=== PATIENT | female | born 2000 | race Caucasian/White ===

== ENCOUNTER 2022-05-05 13:56 | Emergency (ER) | payer MEDICAID ==
[~2022-05-05] VITALS: Ht 160 cm; Wt 77.0 kg
[2022-05-05] MEDS ORDERED: MOXI400T31 PO (15:02)
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
[2022-05-05 15:30] VITALS: BP 160/74
== END 2022-05-05 15:30 | disposition home or self-care (01) ==
LOC: EDUNIT# 13:56 → ER 14:01
DX: S71.151A Open bite, right thigh, initial encounter (principal); F17.290 Nicotine dependence, other tobacco product, uncomplicated; Z88.0 Allergy status to penicillin; Z28.310 Unvaccinated for COVID-19; Y04.1XXA Assault by human bite, initial encounter
CPT/HCPCS: 99281

== ENCOUNTER 2022-05-12 09:59 | Observation (INO) | payer MEDICAID ==
[~2022-05-12 09:59] MED LIST: MOXI400T31 PO
[2022-05-12] MEDS ORDERED: NS IV 1000 ML 1,000 ML IV STA (10:03)
--- NOTE | 2022-05-12 10:03 | ED General ---
General Stated Complaint: SEIZURES History of Present Illness Date Seen by Provider: May 12, 2022 Time Seen by Provider: 10:03 Initial Comments 21-year-old female presents with concerns for seizure. Patient has no seizure history. She had 2 witnessed episodes of seizure-like activity lasting for couple minutes each. EMS reports when they were called she appeared to be postictal. She had no tongue biting or loss of bowel or bladder function. She does have a history of marijuana use and concerns for other substance abuse. No reports of recent fever or chills. She has vomiting. Patient was at [facility] when she just got "warm feeling" just prior to her seizure-like activity. Allergies and Home Medications Allergies Coded Allergies: Penicillins (Verified Allergy, Intermediate, hives, 05/05/22) amoxicillin (Verified Allergy, Intermediate, hives, 05/05/22) Patient Home Medication List Home Medication List Reviewed: Yes Moxifloxacin HCl (Moxifloxacin HCl) 400 Mg Tablet, 400 MG PO DAILY Prescribed by: Kita Jackson on 05/05/22 1502 Review of Systems Review of Systems Constitutional: see HPI; No chills, No fever EENTM: no symptoms reported Respiratory: no symptoms reported Cardiovascular: no symptoms reported Gastrointestinal: No abdominal pain; vomiting Musculoskeletal: no symptoms reported Skin: no symptoms reported Psychiatric/Neurological: No Symptoms Reported Physical Exam Vital Signs Vital Signs - First Documented 05/12/22 10:00 Pulse 122 Resp 16 B/P (MAP) 114/73 (87) Pulse Ox 97 Capillary Refill : Height, Weight, BMI Height: 5'5.00" Weight: 190lbs. oz. 86.086783ex; 30.00 BMI Method:Estimated General Appearance: Other (vomiting, post ictal ) Neck: Full Range of Motion, Normal Inspection Respiratory: Lungs Clear, Normal Breath Sounds Cardiovascular: Regular Rate, Rhythm, No Edema Gastrointestinal: Soft; No Distended, No Guarding Extremity: Normal Capillary Refill Neurologic/Psychiatric: sea foam kiss maker II-XII Norm as Tested, Other (pt mild post ictal but will respond appropriately to questions. ) Skin: Normal Color, Warm/Dry Focused Exam Lactate Level 05/12/22 10:14: Lactic Acid Level 4.63*H 05/12/22 12:20: Lactic Acid Level 0.81 Lactic Acid Level Laboratory Tests Test 05/12/22 10:14 05/12/22 12:20 Lactic Acid Level 4.63 MMOL/L (0.50-2.00) *H 0.81 MMOL/L (0.50-2.00) Progress/Results/Core Measures Suspected Sepsis SIRS Temperature: Pulse: Respiratory Rate: Laboratory Tests 05/12/22 10:05: White Blood Count 12.3H Blood Pressure / Mean: 05/12/22 10:14: Lactic Acid Level 4.63*H 05/12/22 12:20: Lactic Acid Level 0.81 Laboratory Tests 05/12/22 10:05: Creatinine 0.83, Platelet Count 246, Total Bilirubin 0.5 Results/Orders Lab Results Laboratory Tests Test 05/12/22 10:05 05/12/22 10:14 05/12/22 10:43 05/12/22 12:20 Range/Units White Blood Count 12.3 H 4.3-11.0 10^3/uL Red Blood Count 4.42 3.80-5.11 10^6/uL Hemoglobin 13.2 11.5-16.0 g/dL Hematocrit 39 35-52 % Mean Corpuscular Volume 87 80-99 fL Mean Corpuscular Hemoglobin 30 25-34 pg Mean Corpuscular Hemoglobin Concent 34 32-36 g/dL Red Cell Distribution Width 12.7 10.0-14.5 % Platelet Count 246 130-400 10^3/uL Mean Platelet Volume 10.3 9.0-12.2 fL Immature Granulocyte % (Auto) 0 % Neutrophils (%) (Auto) 79 H 42-75 % Lymphocytes (%) (Auto) 15 12-44 % Monocytes (%) (Auto) 5 0-12 % Eosinophils (%) (Auto) 0 0-10 % Basophils (%) (Auto) 1 0-10 % Neutrophils # (Auto) 9.7 H 1.8-7.8 10^3/uL Lymphocytes # (Auto) 1.9 1.0-4.0 10^3/uL Monocytes # (Auto) 0.6 0.0-1.0 10^3/uL Eosinophils # (Auto) 0.0 0.0-0.3 10^3/uL Basophils # (Auto) 0.1 0.0-0.1 10^3/uL Immature Granulocyte # (Auto) 0.1 0.0-0.1 10^3/uL Sodium Level 139 135-145 MMOL/L Potassium Level 3.7 3.6-5.0 MMOL/L Chloride Level 107 98-107 MMOL/L Carbon Dioxide Level 18 L 21-32 MMOL/L Anion Gap 14 5-14 MMOL/L Blood Urea Nitrogen 10 7-18 MG/DL Creatinine 0.83 0.60-1.30 MG/DL Estimat Glomerular Filtration Rate 104 BUN/Creatinine Ratio 12 Glucose Level 139 H 70-105 MG/DL Calcium Level 9.1 8.5-10.1 MG/DL Corrected Calcium 8.9 8.5-10.1 MG/DL Magnesium Level 2.0 1.6-2.4 MG/DL Total Bilirubin 0.5 0.1-1.0 MG/DL Aspartate Amino Transf (AST/SGOT) 16 5-34 U/L Alanine Aminotransferase (ALT/SGPT) 17 0-55 U/L Alkaline Phosphatase 72 40-136 U/L Total Protein 7.2 6.4-8.2 GM/DL Albumin 4.3 3.2-4.5 GM/DL Lipase 27 8-78 U/L Serum Test, Qualitative NEGATIVE NEGATIVE Serum Alcohol < 10 <10 MG/DL Lactic Acid Level 4.63 *H 0.81 0.50-2.00 MMOL/L Urine Color YELLOW Urine Clarity CLEAR Urine pH 6.0 5-9 Urine Specific Andrew >=1.030 1.016-1.022 Urine Protein NEGATIVE NEGATIVE Urine Glucose (UA) NEGATIVE NEGATIVE Urine Ketones NEGATIVE NEGATIVE Urine Nitrite NEGATIVE NEGATIVE Urine Bilirubin NEGATIVE NEGATIVE Urine Urobilinogen 0.2 < = 1.0 MG/DL Urine Leukocyte Esterase NEGATIVE NEGATIVE Urine RBC (Auto) NEGATIVE NEGATIVE Urine RBC NONE /HPF Urine WBC NONE /HPF Urine Squamous Epithelial Cells NONE /HPF Urine Crystals PRESENT H /LPF Urine Amorphous Sediment FEW [place]ADEEM URATES H /LPF Urine Bacteria NEGATIVE /HPF Urine Casts NONE /LPF Urine Mucus MODERATE H /LPF Urine Culture Indicated NO Urine Opiates Screen NEGATIVE NEGATIVE Urine Oxycodone Screen NEGATIVE NEGATIVE Urine Methadone Screen NEGATIVE NEGATIVE Urine Propoxyphene Screen NEGATIVE NEGATIVE Urine Barbiturates Screen NEGATIVE NEGATIVE Ur Tricyclic Antidepressants Screen NEGATIVE NEGATIVE Urine Phencyclidine Screen NEGATIVE NEGATIVE Urine Amphetamines Screen POSITIVE H NEGATIVE Urine Methamphetamines Screen POSITIVE H NEGATIVE Urine Benzodiazepines Screen NEGATIVE NEGATIVE Urine Cocaine Screen NEGATIVE NEGATIVE Urine Cannabinoids Screen POSITIVE H NEGATIVE My Orders Orders - MORELOS,LINDA L DO Alcohol (05/12/22 10:03) Cbc With Automated Diff (05/12/22 10:03) Comprehensive Metabolic Panel (05/12/22 10:03) Drug Screen Stat (Urine) (05/12/22 10:03) Lactic Acid Analyzer (05/12/22 10:03) Lipase (05/12/22 10:03) Magnesium (05/12/22 10:03) Ua Culture If Indicated (05/12/22 10:03) Ondansetron Injection (Zofran Injectio (05/12/22 10:15) Ns Iv 1000 Ml (Sodium Chloride 0.9%) (05/12/22 10:03) Ct Head Wo (05/12/22 10:03) Naloxone Injection (Narcan Injection) (05/12/22 10:16) Hcg,Qualitative Serum (05/12/22 10:20) Naloxone Injection (Narcan Injection) (05/12/22 10:37) Ns (Ivpb) (Sodium C... W/Naloxone Injec (05/12/22 10:45) Ondansetron Injection (Zofran Injectio (05/12/22 11:45) Ondansetron Injection (Zofran Injectio (05/12/22 12:00) Ondansetron Injection (Zofran Injectio (05/12/22 11:46) Ed Admission (Communication) (05/12/22 12:50) Levetiracetam 1000 Mg/Ns 100ml (Keppra I (05/12/22 13:15) Levetiracetam Injection (Keppra Injectio (05/12/22 13:15) Medications Given in ED Current Medications Medications Dose Ordered Sig/Francisco Route Start Time Stop Time Status Last Admin Dose Admin Naloxone HCl 2 mg STK-MED ONCE .ROUTE 05/12/22 10:16 05/12/22 10:19 DC 05/12/22 10:23 2 MG Naloxone HCl 2 mg STK-MED ONCE .ROUTE 05/12/22 10:37 05/12/22 10:40 DC 05/12/22 10:38 2 MG Naloxone HCl 0.4 mg/Sodium Chloride 100 ml @ 4.813 mls/ hr [id number] ONCE IV 05/12/22 10:45 05/13/22 07:31 05/12/22 10:55 4.813 MLS/HR Ondansetron HCl 4 mg ONCE ONCE IVP 05/12/22 10:15 05/12/22 10:16 DC 05/12/22 10:20 4 MG Ondansetron HCl 4 mg ONCE ONCE IVP 05/12/22 11:45 05/12/22 11:46 DC 05/12/22 11:48 4 MG Vital Signs/I&O 05/12/22 10:00 Pulse 122 Resp 16 B/P (MAP) 114/73 (87) Pulse Ox 97 Capillary Refill : Progress Note : Progress Note Patient's diagnostic studies were ordered reviewed and interpreted by me. Patient did have elevation in lactic make acid this could be due to questionable seizure-like activity. Patient's drug screen was positive for methamphetamines and marijuana. Patient CT was ordered and reviewed with initial interpretation by me is negative with final interpretation per radiology report. Patient history was obtained from EMS, mom, other family members along with her. There is concerned that maybe her meth or marijuana was laced. She did have episode when she initially came in and when she was very decreased breathing rate in the 60s when she would fall asleep of her oxygen dropping. She was given 2 doses of 2 mg of Narcan which she did show improvement so she was started on a Narcan drip. Upon the Narcan drip, her respirations improved to where she was able to maintain her respirations at a normal rate with normal oxygenation. We were able to wean this after approximately an hour. Patient will be admitted for observation to the ICU due to this new seizure-like activity is likely related to her methamphetamine and drug use. Patient did receive 1500 mg Keppra loading dose. I discussed case with Dr. Stevens who came to the ER and we reviewed together. Patient was stable upon transfer to the floor. I did have approximately 60 minutes of critical care time with patient. ECG Initial ECG Impression Date: May 12, 2022 Initial ECG Impression Time: 10:26 Initial ECG Rate: 84 Initial ECG Rhythm: Normal Sinus Initial ECG Intervals: PA (142) Initial ECG Impression: Normal Comment nsr, no acute st changes or elevation Diagnostic Imaging Diagonstic Imaging: CT Comments Date of Exam:05/12/22 CT HEAD WO PROCEDURE: CT head without contrast. TECHNIQUE: Multiple contiguous axial images were obtained through the brain without the use of intravenous contrast. Auto Exposure Controls were utilized during the CT exam to meet ALARA standards for radiation dose reduction. INDICATION: Seizures. No prior studies are available for comparison. Ventricles and sulci are within normal limits. No sulcal effacement or midline shift is identified. No acute intra-axial or extra-axial hemorrhage is detected. Cisterns are patent. Visualized paranasal sinuses demonstrate mucosal thickening bilateral maxillary sinuses as well as ethmoid air cells. IMPRESSION: No acute intracranial process is detected. Reviewed: Reviewed by Me, Reviewed/Discussed Departure Impression Primary Impression: Methamphetamine poisoning of undetermined intent Qualified Codes: T43.654A - Poisoning by methamphetamines, undetermined, initial encounter Additional Impression: Seizure-like activity Disposition: ADMITTED INPATIENT Condition: Stable Admissions Decision to Admit Reason: Admit from ER (General) Decision to Admit/Date: May 12, 2022 Time/Decision to Admit Time: 12:00 Departure-Patient Inst. Referrals: [facility] (PCP/Family) Primary Care Physician LINDA MORELOS DO May 12, 2022 10:03
[2022-05-12 10:14] LABS: BASOPHILS # (AUTO) 0.1 10^3/uL (0.0-0.1); BASOPHILS % (AUTO) 1 % (0-10); EOSINOPHILS % (AUTO) 0 % (0-10); HEMATOCRIT 39 % (35-52); HEMOGLOBIN 13.2 g/dL (11.5-16.0); LYMPHOCYTES # (AUTO) 1.9 10^3/uL (1.0-4.0); LYMPHOCYTES % (AUTO) 15 % (12-44); MEAN CORPUSCULAR HEMOGLOBIN 30 pg (25-34); MEAN CORPUSCULAR HGB CONC 34 g/dL (32-36); MEAN CORPUSCULAR VOLUME 87 fL (80-99); MEAN PLATELET VOLUME 10.3 fL (9.0-12.2); MONOCYTES # (AUTO) 0.6 10^3/uL (0.0-1.0); MONOCYTES % (AUTO) 5 % (0-12); NEUTROPHILS # (AUTO) 9.7 10^3/uL (1.8-7.8); NEUTROPHILS % (AUTO) 79 % (42-75); PLATELET COUNT 246 10^3/uL (130-400); WHITE BLOOD COUNT 12.3 10^3/uL (4.3-11.0)
[2022-05-12] MEDS ORDERED: ONDANSETRON 4 MG/2 ML (SDV) Z0FRAN IVP ONE ×2 (10:15→11:45)
[2022-05-12] MEDS ORDERED: NALOXONE 2 MG/2 ML (NARCAN) SYR ONE (10:16)
[2022-05-12 10:26] LABS: ALBUMIN 4.3 GM/DL (3.2-4.5); CHLORIDE 107 MMOL/L (98-107); POTASSIUM 3.7 MMOL/L (3.6-5.0); SODIUM 139 MMOL/L (135-145)
[2022-05-12 10:27] LABS: CALCIUM 9.1 MG/DL (8.5-10.1)
[2022-05-12 10:28] LABS: GLUCOSE 139 MG/DL (70-105)
[2022-05-12] MEDS: NALOXONE 2 MG/2 ML (NARCAN) SYR ONE ×2 (10:28→10:38)
[2022-05-12 10:29] LABS: CARBON DIOXIDE 18 MMOL/L (21-32); TOTAL PROTEIN 7.2 GM/DL (6.4-8.2)
[2022-05-12 10:30] LABS: BILIRUBIN,TOTAL 0.5 MG/DL (0.1-1.0)
[2022-05-12 10:32] LABS: ALKALINE PHOSPHATASE 72 U/L (40-136); CREATININE SERUM 0.83 MG/DL (0.60-1.30); GFR ESTIMATED 104
[2022-05-12 10:33] LABS: BUN/CREATININE RATIO 12
[2022-05-12 10:35] LABS: ALANINE AMINOTRANSFERASE 17 U/L (0-55)
[2022-05-12 10:36] LABS: LIPASE 27 U/L (8-78)
[2022-05-12] MEDS ORDERED: NALOXONE INJECTION 0.4 MG in NS (IVPB) 99 ML IV ONE (10:45)
[2022-05-12 11:16] LABS: BILIRUBIN,URINE NEGATIVE (NEGATIVE); CLARITY,URINE CLEAR; COLOR,URINE YELLOW; GLUCOSE, URINE (UA) NEGATIVE (NEGATIVE); KETONES,URINE NEGATIVE (NEGATIVE); LEUKOCYTE ESTERASE ,URINE NEGATIVE (NEGATIVE); NITRITE,URINE NEGATIVE (NEGATIVE); PROTEIN,URINE NEGATIVE (NEGATIVE)
[2022-05-12 11:32] LABS: AMPHETAMINE SCREEN, URINE POSITIVE (NEGATIVE); BARBITURATE SCREEN URINE NEGATIVE (NEGATIVE); BENZODIAZEPINES SCREEN URINE NEGATIVE (NEGATIVE); CANNABINOID SCREEN, URINE POSITIVE (NEGATIVE); COCAINE SCREEN URINE NEGATIVE (NEGATIVE); METHADONE STAT NEGATIVE (NEGATIVE); OPIATE SCREEN URINE NEGATIVE (NEGATIVE); OXYCODONE STAT NEGATIVE (NEGATIVE); PROPOXYPHENE STAT NEGATIVE (NEGATIVE); TRICYCLIC ANTIDEPRESSANTS SCRE NEGATIVE (NEGATIVE)
[2022-05-12] MEDS ORDERED: ONDANSETRON 4 MG/2 ML (SDV) Z0FRAN ONE (11:46)
[2022-05-12 11:49] LABS: AMORPHOUS SEDIMENT,UR FEW AMOR URATES /LPF; BACTERIA,URINE NEGATIVE /HPF
--- NOTE | 2022-05-12 11:49 | Diagnostic Imaging Report ---
PROCEDURE: CT head without contrast. TECHNIQUE: Multiple contiguous axial images were obtained through the brain without the use of intravenous contrast. Auto Exposure Controls were utilized during the CT exam to meet ALARA standards for radiation dose reduction. INDICATION: Seizures. No prior studies are available for comparison. Ventricles and sulci are within normal limits. No sulcal effacement or midline shift is identified. No acute intra-axial or extra-axial hemorrhage is detected. Cisterns are patent. Visualized paranasal sinuses demonstrate mucosal thickening bilateral maxillary sinuses as well as ethmoid air cells. IMPRESSION: No acute intracranial process is detected. Dictated by: Dictated on workstation # [id number]
[2022-05-12] MEDS ORDERED: ONDANSETRON 4 MG/2 ML (SDV) Z0FRAN IVP PRN (12:00)
[2022-05-12] MEDS ORDERED: levETIRAcetam 1000 mg/NS 100ml 100 ML IV ONE (13:15)
--- NOTE | 2022-05-12 14:26 | Tele-ICU Progress Note ---
Subjective Date Seen by a Provider: May 12, 2022 Subjective/Events-last exam This virtual visit was conducted using real time audio/video. Thank you for asking us to see this patient for critical care needs due to new onset seizures, resp fail in ER requiring Narcan drip, and urine tox screen + for amphetamines and cannabinoids. PMH: substance abuse. PE: Pale, alert. VSS. O2 sat 97% on 3 LPM. HEENT: No obvious masses, adenopathy or JVD. Chest: clear to auscultation. CV: RRR S1 S2 No murmur or added sounds. Abd: Non-tender. Bowel sounds Y. : Unremarkable. Neil Y. BODY DESIGN CHECKER/psychiatric: Grossly intact. No obvious focal findings. Extremities: No edema. Capillary refill < 3 seconds. Skin: unremarkable. Results: Elevated WCC 12.3. Available chart/ vitals / labs / images reviewed. Video assessment done using teleICU camera, rest of exam as per RN. A/P: Respiratory insufficiency resolved : Continue present management with PRN Narcan Monitor for increasing oxygenation needs and/or need for intubation. Critical Care: critically ill patient. Cont. IVF, Keppra Discussed with RN Fanta. Asked RN to reach out to eICU if any questions or concerns later. Time spent with patient/coordination of care with other health professionals (mins): 15. Sepsis Event Evaluation Height, Weight, BMI Height: 5'5.00" Weight: 190lbs. oz. 86.518829cw; 28.00 BMI Method:Estimated Focused Exam Lactate Level 05/12/22 10:14: Lactic Acid Level 4.63*H 05/12/22 12:20: Lactic Acid Level 0.81 Lactic Acid Level Laboratory Tests Test 05/12/22 12:20 Lactic Acid Level 0.81 MMOL/L (0.50-2.00) Exam Exam Patient acknowledged, consented, and participated in this virtual visit which was conducted using real time audio/video Vital Signs Date Time Temp Pulse Resp B/P (MAP) Pulse Ox O2 Delivery O2 Flow Rate FiO2 05/12/22 10:00 122 16 114/73 (87) 97 Height & Weight Height: 5'5.00" Weight: 190lbs. oz. 86.058753up; 28.00 BMI Method:Estimated General Appearance: No Apparent Distress Respiratory: Lungs Clear Capillary Refill: Less Than 3 Seconds Peripheral Pulses: 1+ Dorsalis Pedis (R), 1+ Left Dors-Pedis (L) (See free text) Results Lab Laboratory Tests 05/12/22 10:05 Assessment/Plan Assessment/Plan See free text. Critical Care: Critically Ill Patient VARGHESE WINTERS MD May 12, 2022 14:26
[2022-05-12] MEDS ORDERED: LACTULOSE SYRUP 10GM/15ML (ENULOSE) 30ML UDC PO PRN (15:00)
[2022-05-12] MEDS ORDERED: LORazepam INJ 2 MG/ML (ATIVAN) VIAL IVP PRN (15:00)
[2022-05-12] MEDS ORDERED: NALOXONE 0.4 MG/ML 1 ML (NARCAN) VIAL IV PRN (15:00)
[2022-05-12] MEDS ORDERED: ONDANSETRON 4 MG/2 ML (SDV) Z0FRAN IV PRN (15:00)
[2022-05-12] MEDS ORDERED: ONDANSETRON 4 MG (ZOFRAN) ORAL DISSOLVE TAB PO PRN (15:00)
[2022-05-12] MEDS ORDERED: MILK OF MAGNESIA 400 MG/5 ML 30 ML UDC PO PRN (15:00)
[2022-05-12] MEDS ORDERED: polyethylene glycoL POWDER 17 GM (MIRALAX) PACK PO PRN (15:00)
[2022-05-12] MEDS ORDERED: MELATONIN 3 MG TABLET PO PRN (15:00)
[2022-05-12] MEDS ORDERED: ANTACID SUSP 30 ML UDC (MYLANTA) PO PRN (15:00)
[2022-05-12] MEDS ORDERED: diphenhydrAMINE 50 MG/ML INJ (BENADRYL) IVP PRN (15:00)
[2022-05-12] MEDS ORDERED: HYDROmorphone 2 MG/ML VIAL (DILAUDID) IV PRN (15:00)
[2022-05-12] MEDS ORDERED: ENOXAPARIN 40 MG/0.4 ML (LOVENOX) SYR SC SCH (15:00)
[2022-05-12] MEDS ORDERED: LORazepam 0.5 MG (ATIVAN) TABLET PO PRN (15:00)
[2022-05-12] MEDS ORDERED: diphenhydrAMINE 25 MG TAB (BENADRYL) PO PRN (15:00)
[2022-05-12] MEDS ORDERED: CALCIUM CARBONATE 500 MG (TUMS) TAB.CHEW PO PRN (15:00)
[2022-05-12] MEDS ORDERED: DexMEDEtomidine 250 ML DRIP 250 ML IV SCH (15:00)
[2022-05-12] MEDS ORDERED: BISACODYL 10 MG SUPP (DULCOLAX) PR PRN (15:00)
[2022-05-12] MEDS ORDERED: NS IV 500 ML 500 ML IV PRN (15:00)
[2022-05-12] MEDS ORDERED: ACETAMINOPHEN 325 MG TABLET PO PRN (15:00)
[2022-05-12 15:32] VITALS: BP 114/73
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
[2022-05-12] MEDS: NS IV 1000 ML 1,000 ML IV SCH (16:16)
[2022-05-12] MEDS: DOCUSATE SODIUM 100 MG (COLACE) CAP PO SCH (20:16)
[2022-05-12] MEDS: SENNOSIDES 8.6 MG (SENOKOT) TAB PO SCH (20:16)
[2022-05-13] MEDS: NS IV 1000 ML 1,000 ML IV SCH ×2 (00:16→08:01)
[2022-05-13 05:10] LABS: BASOPHILS % (AUTO) 1 % (0-10); EOSINOPHILS % (AUTO) 1 % (0-10); HEMATOCRIT 36 % (35-52); HEMOGLOBIN 11.8 g/dL (11.5-16.0); LYMPHOCYTES % (AUTO) 24 % (12-44); MEAN CORPUSCULAR HEMOGLOBIN 30 pg (25-34); MEAN CORPUSCULAR HGB CONC 33 g/dL (32-36); MEAN CORPUSCULAR VOLUME 90 fL (80-99); MEAN PLATELET VOLUME 11.7 fL (9.0-12.2); MONOCYTES # (AUTO) 0.6 10^3/uL (0.0-1.0); MONOCYTES % (AUTO) 7 % (0-12); NEUTROPHILS # (AUTO) 5.8 10^3/uL (1.8-7.8); NEUTROPHILS % (AUTO) 68 % (42-75); PLATELET COUNT 148 10^3/uL (130-400); WHITE BLOOD COUNT 8.5 10^3/uL (4.3-11.0)
[2022-05-13 05:25] LABS: ALBUMIN 3.4 GM/DL (3.2-4.5); POTASSIUM 3.8 MMOL/L (3.6-5.0)
[2022-05-13 05:26] LABS: CALCIUM 8.2 MG/DL (8.5-10.1)
[2022-05-13 05:27] LABS: TOTAL PROTEIN 5.7 GM/DL (6.4-8.2)
[2022-05-13 05:29] LABS: BILIRUBIN,TOTAL 0.9 MG/DL (0.1-1.0)
[2022-05-13 05:31] LABS: CREATININE SERUM 0.73 MG/DL (0.60-1.30); PHOSPHORUS 3.4 MG/DL (2.3-4.7)
[2022-05-13 05:34] LABS: MAGNESIUM 1.9 MG/DL (1.6-2.4)
[2022-05-13] MEDS ORDERED: KCL 20 MEQ TAB (K-DUR) PO SCH (06:00)
[2022-05-13] MEDS ORDERED: MAGNESIUM 1 GM/100 ML IVPB 100 ML IV SCH (06:00)
[2022-05-13] MEDS ORDERED: POTASSIUM CL 10MEQ/50ML IVPB 50 ML IV SCH (06:00)
[2022-05-13] MEDS: POTASSIUM CL 10MEQ/50ML IVPB 50 ML IV SCH ×2 (06:14→06:15)
[2022-05-13] MEDS: MAGNESIUM 1 GM/100 ML IVPB 100 ML IV SCH (06:15)
[2022-05-13] MEDS: DOCUSATE SODIUM 100 MG (COLACE) CAP PO SCH (08:05)
[2022-05-13] MEDS: SENNOSIDES 8.6 MG (SENOKOT) TAB PO SCH (08:05)
[2022-05-13] MEDS ORDERED: MOXI400T31 PO (10:02)
--- NOTE | 2022-05-13 10:59 | Discharge Summary ---
Diagnosis/Chief Complaint Date of Admission May 12, 2022 at 14:38 Date of Discharge May 13, 2022 at 10:10 Discharge Diagnosis Seizure like activity Meth use Discharge Summary Discharge Physical Examination Allergies: Coded Allergies: Penicillins (Verified Allergy, Intermediate, hives, 05/05/22) amoxicillin (Verified Allergy, Intermediate, hives, 05/05/22) Vitals & I&Os Vital Signs Date Time Temp Pulse Resp B/P (MAP) Pulse Ox O2 Delivery O2 Flow Rate FiO2 05/13/22 08:04 36.3 Room Air 05/13/22 08:00 97 05/13/22 08:00 62 18 111/55 (73) 3.00 05/12/22 15:00 97 Hospital Course Was the Problem List Reviewed?: Yes Short course after seizure like activity so patient was loaded with Keppra and placed in ICU and she left AMA. Labs (last 24 hrs) Laboratory Tests 05/12/22 10:05: White Blood Count 12.3H, Red Blood Count 4.42, Hemoglobin 13.2, Hematocrit 39, Mean Corpuscular Volume 87, Mean Corpuscular Hemoglobin 30, Mean Corpuscular Hemoglobin Concent 34, Red Cell Distribution Width 12.7, Platelet Count 246, Mean Platelet Volume 10.3, Immature Granulocyte % (Auto) 0, Neutrophils (%) (Auto) 79H, Lymphocytes (%) (Auto) 15, Monocytes (%) (Auto) 5, Eosinophils (%) (Auto) 0, Basophils (%) (Auto) 1, Neutrophils # (Auto) 9.7H, Lymphocytes # (Auto) 1.9, Monocytes # (Auto) 0.6, Eosinophils # (Auto) 0.0, Basophils # (Auto) 0.1, Immature Granulocyte # (Auto) 0.1, Sodium Level 139, Potassium Level 3.7, Chloride Level 107, Carbon Dioxide Level 18L, Anion Gap 14, Blood Urea Nitrogen 10, Creatinine 0.83, Estimat Glomerular Filtration Rate 104, BUN/Creatinine Ratio 12, Glucose Level 139H, Calcium Level 9.1, Corrected Calcium 8.9, Magnesium Level 2.0, Total Bilirubin 0.5, Aspartate Amino Transf (AST/SGOT) 16, Alanine Aminotransferase (ALT/SGPT) 17, Alkaline Phosphatase 72, Total Protein 7.2, Albumin 4.3, Lipase 27, Serum Test, Qualitative NEGATIVE, Serum Alcohol < 10 3/22/23 10:14: Lactic Acid Level 4.63*H 05/12/22 10:43: Urine Color YELLOW, Urine Clarity CLEAR, Urine pH 6.0, Urine Specific [place] >=1.030, Urine Protein NEGATIVE, Urine Glucose (UA) NEGATIVE, Urine Ketones NEGATIVE, Urine Nitrite NEGATIVE, Urine Bilirubin NEGATIVE, Urine Urobilinogen 0.2, Urine Leukocyte Esterase NEGATIVE, Urine RBC (Auto) NEGATIVE, Urine RBC NONE, Urine WBC NONE, Urine Squamous Epithelial Cells NONE, Urine Crystals PRESENTH, Urine Amorphous Sediment FEW NADEEM URATESH, Urine Bacteria NEGATIVE, Urine Casts NONE, Urine Mucus MODERATEH, Urine Culture Indicated NO, Urine Opiates Screen NEGATIVE, Urine Oxycodone Screen NEGATIVE, Urine Methadone Screen NEGATIVE, Urine Propoxyphene Screen NEGATIVE, Urine Barbiturates Screen NEGATIVE, Ur Tricyclic Antidepressants Screen NEGATIVE, Urine Phencyclidine Screen NEGATIVE, Urine Amphetamines Screen POSITIVEH, Urine Methamphetamines Screen POSITIVEH, Urine Benzodiazepines Screen NEGATIVE, Urine Cocaine Screen NEGATIVE, Urine Cannabinoids Screen POSITIVEH 05/12/22 12:20: Lactic Acid Level 0.81 05/13/22 04:20: White Blood Count 8.5, Red Blood Count 3.99, Hemoglobin 11.8, Hematocrit 36, Mean Corpuscular Volume 90, Mean Corpuscular Hemoglobin 30, Mean Corpuscular Hemoglobin Concent 33, Red Cell Distribution Width 12.8, Platelet Count 148, Mean Platelet Volume 11.7, Immature Granulocyte % (Auto) 0, Neutrophils (%) (Auto) 68, Lymphocytes (%) (Auto) 24, Monocytes (%) (Auto) 7, Eosinophils (%) (Auto) 1, Basophils (%) (Auto) 1, Neutrophils # (Auto) 5.8, Lymphocytes # (Auto) 2.0, Monocytes # (Auto) 0.6, Eosinophils # (Auto) 0.0, Basophils # (Auto) 0.0, Immature Granulocyte # (Auto) 0.0, Sodium Level 140, Potassium Level 3.8, C hloride Level 112H, Carbon Dioxide Level 18L, Anion Gap 10, Blood Urea Nitrogen 7, Creatinine 0.73, Estimat Glomerular Filtration Rate 121, BUN/Creatinine Ratio 10, Glucose Level 88, Calcium Level 8.2L, Corrected Calcium 8.7, Phosphorus Level 3.4, Magnesium Level 1.9, Total Bilirubin 0.9, Aspartate Amino Transf (AST/SGOT) 15, Alanine Aminotransferase (ALT/SGPT) 15, Alkaline Phosphatase 61, Total Protein 5.7L, Albumin 3.4 Microbiology 05/12/22 MRSA Screen - Final, Complete MRSA not isolated Pending Labs Microbiology Date/Time Source Procedure Growth Status 05/12/22 15:10 Nasal MRSA Screen - Final MRSA not isolated Complete Laboratory Tests 05/12/22 10:05: White Blood Count 12.3, Red Blood Count 4.42, Hemoglobin 13.2, Hematocrit 39, Mean Corpuscular Volume 87, Mean Corpuscular Hemoglobin 30, Mean Corpuscular Hemoglobin Concent 34, Red Cell Distribution Width 12.7, Platelet Count 246, Mean Platelet Volume 10.3, Immature Granulocyte % (Auto) 0, Neutrophils (%) (Auto) 79, Lymphocytes (%) (Auto) 15, Monocytes (%) (Auto) 5, Eosinophils (%) (Auto) 0, Basophils (%) (Auto) 1, Neutrophils # (Auto) 9.7, Lymphocytes # (Auto) 1.9, Monocytes # (Auto) 0.6, Eosinophils # (Auto) 0.0, Basophils # (Auto) 0.1, Immature Granulocyte # (Auto) 0.1, Sodium Level 139, Potassium Level 3.7, Chloride Level 107, Carbon Dioxide Level 18, Anion Gap 14, Blood Urea Nitrogen 10, Creatinine 0.83, Estimat Glomerular Filtration Rate 104, BUN/Creatinine Ratio 12, Glucose Level 139, Calcium Level 9.1, Corrected Calcium 8.9, Magnesium Level 2.0, Total Bilirubin 0.5, Aspartate Amino Transf (AST/SGOT) 16, Alanine Aminotransferase (ALT/SGPT) 17, Alkaline Phosphatase 72, Total Protein 7.2, Albumin 4.3, Lipase 27, Serum Test, Qualitative NEGATIVE, Serum Alcohol < 10 05/12/22 10:14: Lactic Acid Level 4.63 05/12/22 10:43: Urine Color YELLOW, Urine Clarity CLEAR, Urine pH 6.0, Urine Specific [place] >=1.030, Urine Protein NEGATIVE, Urine Glucose (UA) NEGATIVE, Urine Ketones NEGATIVE, Urine Nitrite NEGATIVE, Urine Bilirubin NEGATIVE, Urine Urobilinogen 0.2, Urine Leukocyte Esterase NEGATIVE, Urine RBC (Auto) NEGATIVE, Urine RBC NONE, Urine WBC NONE, Urine Squamous Epithelial Cells NONE, Urine Crystals PRESENT, Urine Amorphous Sediment FEW [place] URATES, Urine Bacteria NEGATIVE, Urine Casts NONE, Urine Mucus MODERATE, Urine Culture Indicated NO, Urine Opiates Screen NEGATIVE, Urine Oxycodone Screen NEGATIVE, Urine Methadone Screen NEGATIVE, Urine Propoxyphene Screen NEGATIVE, Urine Barbiturates Screen NEGATIVE, Ur Tricyclic Antidepressants Screen NEGATIVE, Urine Phencyclidine Screen NEGATIVE, Urine Amphetamines Screen POSITIVE, Urine Methamphetamines Screen POSITIVE, Urine Benzodiazepines Screen NEGATIVE, Urine Cocaine Screen NEGATIVE, Urine Cannabinoids Screen POSITIVE 05/12/22 12:20: Lactic Acid Level 0.81 05/13/22 04:20: White Blood Count 8.5, Red Blood Count 3.99, Hemoglobin 11.8, Hematocrit 36, Mean Corpuscular Volume 90, Mean Corpuscular Hemoglobin 30, Mean Corpuscular Hemoglobin Concent 33, Red Cell Distribution Width 12.8, Platelet Count 148, Mean Platelet Volume 11.7, Immature Granulocyte % (Auto) 0, Neutrophils (%) (Auto) 68, Lymphocytes (%) (Auto) 24, Monocytes (%) (Auto) 7, Eosinophils (%) (Auto) 1, Basophils (%) (Auto) 1, Neutrophils # (Auto) 5.8, Lymphocytes # (Auto) 2.0, Monocytes # (Auto) 0.6, Eosinophils # (Auto) 0.0, Basophils # (Auto) 0.0, Immature Granulocyte # (Auto) 0.0, Sodium Level 140, Potassium Level 3.8, Chl oride Level 112, Carbon Dioxide Level 18, Anion Gap 10, Blood Urea Nitrogen 7, Creatinine 0.73, Estimat Glomerular Filtration Rate 121, BUN/Creatinine Ratio 10, Glucose Level 88, Calcium Level 8.2, Corrected Calcium 8.7, Phosphorus Level 3.4, Magnesium Level 1.9, Total Bilirubin 0.9, Aspartate Amino Transf (AST/SGOT) 15, Alanine Aminotransferase (ALT/SGPT) 15, Alkaline Phosphatase 61, Total Protein 5.7, Albumin 3.4 Discharge Home Medications: Active Scripts Active Reported Moxifloxacin HCl 400 Mg Tablet 400 Mg PO DAILY FILLED 05-05-2022 #11/30 DAY SUPPLY Instructions to patient/family Please see electronic discharge instructions given to patient. Diagnosis/Problems Diagnosis/Problems (1) Seizure-like activity Status: Acute (2) Methamphetamine poisoning of undetermined intent Status: Acute Qualifiers: Qualified Codes: T43.654A - Poisoning by methamphetamines, undetermined, initial encounter ARIS LUNSFORD DO May 13, 2022 10:59
--- NOTE | 2022-05-13 14:26 | Progress Note ---
YASMINE CANO 05/13/22 1426: Progress Note Salima Cox is a 21 yo F w/ hx of bipolar d/o, anxiety, depression, methamphetamine use who presented on 05/12 after two episodes of seizure like activity and hot flashes. In ED, a UDS was positive for cannabinoids, amphetamine, and methamphetamine. Due to a her poor respiratory status and UDS, and suspicion for ingestion of a drug laced with fentanyl, ED made decision to start her on a narcan drip, after which her respiratory status improved. She was then started on a Keppra dose and admitted to the icu for w/u of her seizure. A CTH was read nonacute. Her presumptive diagnosis was methamphetamine induced seizure vs fentanyl induced hypoxic seizure vs psychogenic nonepileptic seizure. After her two initial seizures, no additional seizures were reported during her stay, though she mentioned an episode 2 weeks ago of seizure like activity witnessed by her boyfriend that she was not seen for. On 05/13 she left AMA with her Father at ~10:30 am. THEODORA LUNSFORD DO 05/14/22 0513: Supervisory-Addendum Brief Verification & Attestation Participated in pt care: history, MDM, physical Personally performed: exam, history, MDM, supervision of care Care discussed with: Medical Student Procedures: n/a Results interpretation: Verified all documentation Verification and Attestation of Medical Student E/M Service A medical student performed and documented this service in my presence. I reviewed and verified all information documented by the medical student and made modifications to such information, when appropriate. I personally performed the physical exam and medical decision making. Theodora Lunsford May 14, 2022,05:13 YASMINE CANO May 13, 2022 14:26 THEODORA LUNSFORD DO May 14, 2022 05:13
== END 2022-05-13 10:10 | disposition left against medical advice (07) ==
LOC: EDUNIT# 09:59 → ER 10:01 → INTOOBSV 14:38 → ICU 14:38
PROVIDERS: ADMIT Internal Medicine; ATTEND Internal Medicine
DX: T43.654A Poisoning by methamphetamines, undetermined, initial encounter (principal); R56.9 Unspecified convulsions; F17.210 Nicotine dependence, cigarettes, uncomplicated
CPT/HCPCS: 51702; 70450; 80053 ×2; 80306; 81000; 83605; 83690; 83735 ×2; 84100; 84703; 85025 ×2; 87081; 93005; 99284; G0480; 36415; 80320; 96361; 96366; 96372; 96375; 96376; G0378

== ENCOUNTER 2022-06-15 05:38 | Emergency (ER) | payer MEDICAID ==
[~2022-06-15] VITALS: Ht 160 cm; Wt 58.9 kg
[2022-06-15] MEDS ORDERED: LACTATED RINGERS 1,000 ML IV STA (05:49)
[2022-06-15 05:57] LABS: BASOPHILS # (AUTO) 0.1 10^3/uL (0.0-0.1); BASOPHILS % (AUTO) 1 % (0-10); EOSINOPHILS # (AUTO) 0.1 10^3/uL (0.0-0.3); EOSINOPHILS % (AUTO) 2 % (0-10); HEMATOCRIT 40 % (35-52); HEMOGLOBIN 13.8 g/dL (11.5-16.0); LYMPHOCYTES # (AUTO) 3.4 10^3/uL (1.0-4.0); LYMPHOCYTES % (AUTO) 37 % (12-44); MEAN CORPUSCULAR HEMOGLOBIN 30 pg (25-34); MEAN CORPUSCULAR HGB CONC 34 g/dL (32-36); MEAN CORPUSCULAR VOLUME 88 fL (80-99); MEAN PLATELET VOLUME 10.8 fL (9.0-12.2); MONOCYTES # (AUTO) 0.7 10^3/uL (0.0-1.0); MONOCYTES % (AUTO) 8 % (0-12); NEUTROPHILS # (AUTO) 4.7 10^3/uL (1.8-7.8); NEUTROPHILS % (AUTO) 52 % (42-75); PLATELET COUNT 231 10^3/uL (130-400)
--- NOTE | 2022-06-15 06:03 | ED General ---
General Chief Complaint: Neurological Problems Stated Complaint: SEIZURES Nursing Triage Note: PT ARRIVED [facility]IA [facility] CRYING WITH CC OF SEIZURES. PT STATES THAT SHE WAS DRINIKING TONIGHT. PT IS POOR HISTORIAN. Source of Information: Patient, EMS Exam Limitations: Physical Impairments (LISANDRO GAN MD) History of Present Illness Date Seen by Provider: Jun 15, 2022 Time Seen by Provider: 05:39 Initial Comments Here by EMS with chief complaint of possible seizure at home. Patient admits to drinking alcohol tonight. She is not answering questions well. She is crying and answering questions minimally. She does follow some commands. She denies drugs. She is not relating her history well. EMS reports that this is how she has been throughout their time with her. They state they were called to the scene for possibility of seizure and at the scene law enforcement was arresting patient's boyfriend. Patient has been asking for her boyfriend since. Historical record review shows that she has had methamphetamine overdose 1 month ago. No obvious injury. Timing/Duration: 1 Hour Severity: Moderate Associated Systoms: No Cough, No Nausea/Vomiting; Seizure (LISANDRO GAN MD) Allergies and Home Medications Allergies Coded Allergies: Penicillins (Verified Allergy, Intermediate, hives, 05/05/22) amoxicillin (Verified Allergy, Intermediate, hives, 05/05/22) Patient Home Medication List Home Medication List Reviewed: Yes (LISANDRO GAN MD) Moxifloxacin HCl (Moxifloxacin HCl) 400 Mg Tablet, 400 MG PO DAILY, (Reported) Entered as Reported by: JOSELIN RAYA on 05/13/22 1002 Review of Systems Review of Systems Constitutional: see HPI; No chills, No fever Respiratory: No cough, No short of breath Gastrointestinal: No nausea, No vomiting Psychiatric/Neurological: Weakness Limited review of systems due to patient presentation and current condition. (LISANDRO GAN MD) Past Yschurn-Myqrik-Tauruc Hx Patient Social History Tobacco Use?: No Substance use?: No Alcohol Use?: Yes Alcohol Frequency: Several times a month (LISANDRO GAN MD) Past Medical History Surgery/Hospitalization HX: MOTHER DENIES. STATES HAS OVERDOSED ON ALCOHOL A COUPLE DIFFERENT TIMES Surgeries: Yes (LISANDRO GAN MD) Family Medical History Diabetes Limited history due to patient's current condition (LISANDRO GAN MD) Physical Exam Vital Signs Vital Signs - First Documented 06/15/22 05:39 Temp 36.4 Pulse 110 B/P (MAP) 124/83 (97) Pulse Ox 99 O2 Delivery Room Air (SAMSON LOPES MD) Vital Signs Capillary Refill : (LISANDRO GAN MD) Height, Weight, BMI Height: 5'5.00" Weight: 190lbs. oz. 86.059631jg; 23.00 BMI Method:Estimated General Appearance: WD/WN, Mild Distress (Crying) HEENT: PERRL/EOMI, Pharynx Normal, Moist Mucous Membranes Neck: Non Tender, Supple Respiratory: Lungs Clear, Normal Breath Sounds Cardiovascular: No Murmur, Tachycardia Gastrointestinal: Non Tender, Soft Back: Normal Inspection, No CVA Tenderness, No Vertebral Tenderness Extremity: Normal Range of Motion, Non Tender Neurologic/Psychiatric: Alert, Other (Crying. Not answering questions of place and time) Skin: Normal Color, Warm/Dry (LISANDRO GAN MD) Progress/Results/Core Measures Suspected Sepsis SIRS Temperature: Pulse: 110 Respiratory Rate: Laboratory Tests 06/15/22 05:40: Blood Pressure 124 /83 Mean: 97 Laboratory Tests 06/15/22 05:40: (LISANDRO GAN MD) Results/Orders Lab Results Laboratory Tests Test 06/15/22 05:40 06/15/22 06:00 Range/Units White Blood Count 9.0 4.3-11.0 10^3/uL Red Blood Count 4.56 3.80-5.11 10^6/uL Hemoglobin 13.8 11.5-16.0 g/dL Hematocrit 40 35-52 % Mean Corpuscular Volume 88 80-99 fL Mean Corpuscular Hemoglobin 30 25-34 pg Mean Corpuscular Hemoglobin Concent 34 32-36 g/dL Red Cell Distribution Width 12.7 10.0-14.5 % Platelet Count 231 130-400 10^3/uL Mean Platelet Volume 10.8 9.0-12.2 fL Immature Granulocyte % (Auto) 0 % Neutrophils (%) (Auto) 52 42-75 % Lymphocytes (%) (Auto) 37 12-44 % Monocytes (%) (Auto) 8 0-12 % Eosinophils (%) (Auto) 2 0-10 % Basophils (%) (Auto) 1 0-10 % Neutrophils # (Auto) 4.7 1.8-7.8 10^3/uL Lymphocytes # (Auto) 3.4 1.0-4.0 10^3/uL Monocytes # (Auto) 0.7 0.0-1.0 10^3/uL Eosinophils # (Auto) 0.1 0.0-0.3 10^3/uL Basophils # (Auto) 0.1 0.0-0.1 10^3/uL Immature Granulocyte # (Auto) 0.0 0.0-0.1 10^3/uL Sodium Level 142 135-145 MMOL/L Potassium Level 3.5 L 3.6-5.0 MMOL/L Chloride Level 109 H 98-107 MMOL/L Carbon Dioxide Level 23 21-32 MMOL/L Anion Gap 10 5-14 MMOL/L Blood Urea Nitrogen 12 7-18 MG/DL Creatinine 0.81 0.60-1.30 MG/DL Estimat Glomerular Filtration Rate 107 BUN/Creatinine Ratio 15 Glucose Level 88 70-105 MG/DL Calcium Level 8.8 8.5-10.1 MG/DL Corrected Calcium 8.6 8.5-10.1 MG/DL Magnesium Level 1.9 1.6-2.4 MG/DL Total Bilirubin 0.2 0.1-1.0 MG/DL Aspartate Amino Transf (AST/SGOT) 17 5-34 U/L Alanine Aminotransferase (ALT/SGPT) 15 0-55 U/L Alkaline Phosphatase 58 40-136 U/L Total Protein 7.0 6.4-8.2 GM/DL Albumin 4.2 3.2-4.5 GM/DL Serum Test, Qualitative NEGATIVE NEGATIVE Salicylates Level < 5.0 L 5.0-20.0 MG/DL Acetaminophen Level < 10 L 10-30 UG/ML Serum Alcohol 116 H <10 MG/DL Urine Color YELLOW Urine Clarity CLEAR Urine pH 5.5 5-9 Urine Specific [place] <=1.005 1.016-1.022 Urine Protein NEGATIVE NEGATIVE Urine Glucose (UA) NEGATIVE NEGATIVE Urine Ketones NEGATIVE NEGATIVE Urine Nitrite NEGATIVE NEGATIVE Urine Bilirubin NEGATIVE NEGATIVE Urine Urobilinogen 0.2 < = 1.0 MG/DL Urine Leukocyte Esterase NEGATIVE NEGATIVE Urine RBC (Auto) NEGATIVE NEGATIVE Urine RBC NONE /HPF Urine WBC RARE /HPF Urine Squamous Epithelial Cells RARE /HPF Urine Crystals NONE /LPF Urine Bacteria NEGATIVE /HPF Urine Casts NONE /LPF Urine Mucus NEGATIVE /LPF Urine Culture Indicated NO Urine Opiates Screen NEGATIVE NEGATIVE Urine Oxycodone Screen NEGATIVE NEGATIVE Urine Methadone Screen NEGATIVE NEGATIVE Urine Propoxyphene Screen NEGATIVE NEGATIVE Urine Barbiturates Screen NEGATIVE NEGATIVE Ur Tricyclic Antidepressants Screen NEGATIVE NEGATIVE Urine Phencyclidine Screen NEGATIVE NEGATIVE Urine Amphetamines Screen POSITIVE H NEGATIVE Urine Methamphetamines Screen POSITIVE H NEGATIVE Urine Benzodiazepines Screen NEGATIVE NEGATIVE Urine Cocaine Screen NEGATIVE NEGATIVE Urine Cannabinoids Screen POSITIVE H NEGATIVE (SAMSON LOPES MD) My Orders Orders - SAMSON LOPES MD Ondansetron Injection (Zofran Injectio (06/15/22 09:00) (SAMSON LOPES MD) Medications Given in ED Current Medications Medications Dose Ordered Sig/Francisco Route Start Time Stop Time Status Last Admin Dose Admin Ondansetron HCl 4 mg ONCE ONCE IVP 06/15/22 09:00 06/15/22 09:01 DC 06/15/22 08:59 4 MG (SAMSON LOPES MD) Vital Signs/I&O 06/15/22 05:39 Temp 36.4 Pulse 110 B/P (MAP) 124/83 (97) Pulse Ox 99 O2 Delivery Room Air (SAMSON LOPES MD) Vital Signs/I&O Capillary Refill : (LISANDRO GAN MD) Blood Pressure Mean: 97 Progress Note : Progress Note Seen and evaluated on EMS arrival. IV established by EMS. LR 1 L bolus ordered. Labs including CBC, CMP, EtOH, acetaminophen, salicylate and drug screen ordered. Serum hCG ordered. Monitor patient. Differential diagnosis includes alcohol intoxication, drug overdose, seizure, electrolyte abnormality, dehydration 0605: Care transferred to Dr. Galaviz pending labs. (LISANDRO GAN MD) Progress Note #1: Time: 06:46 Progress Note Care of this patient was assumed from Dr. GAN at shift change. Verbal report was received. Chart has been reviewed. I have reviewed and interpreted labs. CBC and CMP were unremarkable. Toxicology screen returned positive results for amphetamine, methamphetamine, marijuana, and an alcohol level of 11 6. Patient has appearance of intoxication at this time. She seems to be sleeping soundly but does stir when stimulated. She does not speak or show much response when stimulated, but she does show purposeful movement spontaneously on her own such as adjusting herself under a blanket. I believe some of her lack of responsiveness is purely behavioral based on these observations. Vital signs are stable. She is breathing well with a normal rate and effort. She is protecting her airway. At this time plan is to observe and allow her to sober over time. Patient's father Solitario Cox and his called to check on [place]. They were at the home at the time of the incident. They reported she was "talking weird" and they were concerned she may have had a seizure. There was no report from EMS or parents on actual seizure like activity. After reviewing the chart thoroughly from the prior visit, no specific seizure-like activity was described during that visit either despite discharge and admission diagnosis listing seizure-like activity. Based on all the evidence, it seems much more likely this patient is having adverse events related to polysubstance abuse and intoxication rather than a true seizure activity. Progress Note #2: Time: 09:03 Progress Note I was called to patient's room by nursing staff as patient was up and insistent she was ready to leave. I attempted to engage in a conversation with her about her health and her visit today. Patient was immediately verbally attacking me and belligerent. This behavior was absolutely unprovoked. She was yelling and cursing at me for no apparent reason. I attempted to visit with her about reported seizure activity as there has been no evidence of true seizure activity based on my review of her chart and history I received from her family. Patient states seizure activity was witnessed during her previous hospital admission and by EMS. However, EMS did not report any witnessed seizure activity to our staff, and there are no notes in her hospital visit indicating she had any evidence of seizure activity while in the hospital. This made the patient even more angry. I could not have any reasonable conversation with her at that point. She did report she is receiving behavioral health services at [facility]. I advised that she have targeted substance abuse treatment. She reports she has already had an inpatient admission and has a meeting arranged for substance abuse treatment. She reported feeling nauseated and I offered Zofran. I inquired if there was any other way I could help her at this point and she had no response. Patient did report to me that she is an alcoholic and drinks every day. The positive drug screen was also addressed. Patient reports that she takes some type of prescribed amphetamine the name of which was not familiar to me. The validity of that statement is in question as the name of the medication was unrecognizable to this provider and no controlled substances could be found in her filling record or [facility]. Based on prior documentation, family had previously reported that the patient does use methamphetamine. Patient was ultimately discharged at her request. She has remained stable through her ER stay. (SAMSON LOPES MD) Departure Impression Primary Impression: Alcohol intoxication Qualified Codes: F10.929 - Alcohol use, unspecified with intoxication, unspecified Additional Impressions: Polysubstance abuse Nausea Behavior disturbance Disposition: 01 HOME, SELF-CARE Condition: Improved Departure-Patient Inst. Decision time for Depature: 09:00 (SMASON LOPES MD) Referrals: [facility] (PCP/Family) Primary Care Physician Patient Instructions: ALCOHOL AND SUBSTANCE ABUSE Add. Discharge Instructions: Establish with a primary care medical provider soon as possible if you do not already have one. Please make phone calls today to arrange an appointment. Call [facility] today to arrange prompt follow-up for behavioral health needs. Inquire about targeted substance abuse treatment programs. Work on tapering down on your alcohol consumption. Avoid abruptly stopping alcohol completely as this may cause serious withdrawal symptoms and may be life-threatening. Until the question of seizures is answered, you may not drive by [place] state law. Also avoid any situations that could be dangerous if you have any seizure- like activity. Such situations may include swimming, operating machinery, using heights such as ladders, etc. Return to care if you have worsening of symptoms despite following these instructions. All discharge instructions reviewed with patient and/or family. Voiced understanding. Copy Copies To 1: [facility]/LISANDRO OLIVIER MD Jun 15, 2022 06:02 SAMSON LOPES MD Jun 15, 2022 06:50
[2022-06-15 06:06] LABS: BILIRUBIN,URINE NEGATIVE (NEGATIVE); CLARITY,URINE CLEAR; COLOR,URINE YELLOW; GLUCOSE, URINE (UA) NEGATIVE (NEGATIVE); KETONES,URINE NEGATIVE (NEGATIVE); LEUKOCYTE ESTERASE ,URINE NEGATIVE (NEGATIVE); NITRITE,URINE NEGATIVE (NEGATIVE); PH,URINE 5.5 (5-9); PROTEIN,URINE NEGATIVE (NEGATIVE)
[2022-06-15 06:13] LABS: BACTERIA,URINE NEGATIVE /HPF; SQUAMOUS EPITHELIAL CELL,UR RARE /HPF; WBC,URINE RARE /HPF
[2022-06-15 06:18] LABS: ALBUMIN 4.2 GM/DL (3.2-4.5); BILIRUBIN,TOTAL 0.2 MG/DL (0.1-1.0); CALCIUM 8.8 MG/DL (8.5-10.1); CREATININE SERUM 0.81 MG/DL (0.60-1.30); MAGNESIUM 1.9 MG/DL (1.6-2.4); POTASSIUM 3.5 MMOL/L (3.6-5.0)
[2022-06-15 06:25] LABS: AMPHETAMINE SCREEN, URINE POSITIVE (NEGATIVE); BARBITURATE SCREEN URINE NEGATIVE (NEGATIVE); BENZODIAZEPINES SCREEN URINE NEGATIVE (NEGATIVE); CANNABINOID SCREEN, URINE POSITIVE (NEGATIVE); COCAINE SCREEN URINE NEGATIVE (NEGATIVE); METHADONE STAT NEGATIVE (NEGATIVE); OPIATE SCREEN URINE NEGATIVE (NEGATIVE); OXYCODONE STAT NEGATIVE (NEGATIVE); PROPOXYPHENE STAT NEGATIVE (NEGATIVE); TRICYCLIC ANTIDEPRESSANTS SCRE NEGATIVE (NEGATIVE)
[2022-06-15 06:29] LABS: ACETAMINOPHEN < 10 UG/ML (10-30); SALICYLATE < 5.0 MG/DL (5.0-20.0)
[2022-06-15] MEDS ORDERED: ONDANSETRON 4 MG/2 ML (SDV) Z0FRAN IVP ONE (09:00)
[2022-06-15 09:13] VITALS: BP 110/74
== END 2022-06-15 09:13 | disposition home or self-care (01) ==
LOC: EDUNIT# 05:38 → ER 05:39
DX: F10.129 Alcohol abuse with intoxication, unspecified (principal); F15.10 Other stimulant abuse, uncomplicated; F12.10 Cannabis abuse, uncomplicated; Y90.5 Blood alcohol level of 100-119 mg/100 ml
CPT/HCPCS: 51701; 80053; 80306; 81000; 83735; 84703; 85025; 99284; G0480 ×3; 36415; 80320; 80329

== ENCOUNTER 2022-07-03 19:07 | Emergency (ER) | payer MEDICAID ==
[~2022-07-03] VITALS: Ht 165.1 cm; Wt 68.0 kg
[2022-07-03] MEDS ORDERED: LIDOCAINE UROJET 2% GEL 10 ML PKG TOP ONE (19:15)
[2022-07-03 19:16] LABS: BASOPHILS # (AUTO) 0.1 10^3/uL (0.0-0.1); BASOPHILS % (AUTO) 1 % (0-10); EOSINOPHILS % (AUTO) 0 % (0-10); HEMATOCRIT 44 % (35-52); HEMOGLOBIN 14.8 g/dL (11.5-16.0); LYMPHOCYTES # (AUTO) 2.5 10^3/uL (1.0-4.0); LYMPHOCYTES % (AUTO) 25 % (12-44); MEAN CORPUSCULAR HEMOGLOBIN 29 pg (25-34); MEAN CORPUSCULAR HGB CONC 34 g/dL (32-36); MEAN CORPUSCULAR VOLUME 87 fL (80-99); MEAN PLATELET VOLUME 10.6 fL (9.0-12.2); MONOCYTES # (AUTO) 0.6 10^3/uL (0.0-1.0); MONOCYTES % (AUTO) 6 % (0-12); NEUTROPHILS # (AUTO) 6.9 10^3/uL (1.8-7.8); NEUTROPHILS % (AUTO) 68 % (42-75); PLATELET COUNT 274 10^3/uL (130-400); WHITE BLOOD COUNT 10.1 10^3/uL (4.3-11.0)
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
[2022-07-03 19:28] LABS: BILIRUBIN,URINE NEGATIVE (NEGATIVE); CLARITY,URINE CLEAR; COLOR,URINE YELLOW; GLUCOSE, URINE (UA) NEGATIVE (NEGATIVE); KETONES,URINE TRACE (NEGATIVE); LEUKOCYTE ESTERASE ,URINE NEGATIVE (NEGATIVE); NITRITE,URINE NEGATIVE (NEGATIVE); PROTEIN,URINE NEGATIVE (NEGATIVE)
[2022-07-03] MEDS ORDERED: LACTATED RINGERS 1,000 ML IV ONE (19:30)
[2022-07-03 19:44] LABS: BACTERIA,URINE FEW /HPF; RBC,URINE RARE /HPF; WBC,URINE RARE /HPF
[2022-07-03 19:45] LABS: AMORPHOUS SEDIMENT,UR FEW AMOR URATES /LPF; HYALINE CASTS, URINE 0-2 /LPF
[2022-07-03 19:50] LABS: ALBUMIN 4.3 GM/DL (3.2-4.5); CHLORIDE 104 MMOL/L (98-107); POTASSIUM 3.7 MMOL/L (3.6-5.0); SODIUM 138 MMOL/L (135-145)
[2022-07-03 19:51] LABS: CALCIUM 9.6 MG/DL (8.5-10.1)
[2022-07-03 19:52] LABS: GLUCOSE 169 MG/DL (70-105)
[2022-07-03 19:53] LABS: CARBON DIOXIDE 17 MMOL/L (21-32); TOTAL PROTEIN 7.5 GM/DL (6.4-8.2)
[2022-07-03 19:54] LABS: BILIRUBIN,TOTAL 0.8 MG/DL (0.1-1.0)
[2022-07-03 19:56] LABS: ALKALINE PHOSPHATASE 84 U/L (40-136); CREATININE SERUM 0.83 MG/DL (0.60-1.30); GFR ESTIMATED 104
[2022-07-03 19:57] LABS: AMPHETAMINE SCREEN, URINE POSITIVE (NEGATIVE); BARBITURATE SCREEN URINE NEGATIVE (NEGATIVE); BENZODIAZEPINES SCREEN URINE NEGATIVE (NEGATIVE); CANNABINOID SCREEN, URINE POSITIVE (NEGATIVE); COCAINE SCREEN URINE NEGATIVE (NEGATIVE); METHADONE STAT NEGATIVE (NEGATIVE); OPIATE SCREEN URINE NEGATIVE (NEGATIVE); OXYCODONE STAT NEGATIVE (NEGATIVE); PROPOXYPHENE STAT NEGATIVE (NEGATIVE); TRICYCLIC ANTIDEPRESSANTS SCRE NEGATIVE (NEGATIVE)
[2022-07-03 19:58] LABS: BUN/CREATININE RATIO 13
[2022-07-03 19:59] LABS: ALANINE AMINOTRANSFERASE 14 U/L (0-55); MAGNESIUM 1.8 MG/DL (1.6-2.4); SALICYLATE < 5.0 MG/DL (5.0-20.0)
[2022-07-03 20:00] LABS: ACETAMINOPHEN < 10 UG/ML (10-30); CREATINE KINASE 138 U/L (29-168)
[2022-07-03] MEDS ORDERED: NALOXONE 2 MG/2 ML (NARCAN) SYR IV ONE (20:30)
[2022-07-03 21:21] VITALS: BP 127/90
== END 2022-07-03 21:21 | disposition home or self-care (01) ==
LOC: EDUNIT# 19:07 → ER 19:10
DX: F15.229 Other stimulant dependence with intoxication, unspecified (principal); R41.82 Altered mental status, unspecified; F10.129 Alcohol abuse with intoxication, unspecified; F17.210 Nicotine dependence, cigarettes, uncomplicated
CPT/HCPCS: 51702; 80053; 80306; 81000; 82550; 82553; 83735; 83874; 84703; 85025; 87088; 93005; 93041; 99284; G0480 ×3; 36415; 80320; 80329